=== PATIENT | male | born 1975 | race Caucasian/White ===

== ENCOUNTER 2018-05-06 18:25 | Emergency (ER) | payer OTHER, BC ==
--- NOTE | 2018-05-06 18:45 | EDM.PDOC ---
ED HPI GENERAL MEDICAL PROBLEM - General Chief Complaint: Lower Extremity Injury/Pain Stated Complaint: PT HURT RT FT Time Seen by Provider: 05/06/18 18:34 - History of Present Illness INITIAL COMMENTS - FREE TEXT/NARRATIVE: HISTORY AND PHYSICAL: History of present illness: Patient is a 43-year-old male who presents with a right foot injury that occurred approximately 2:30 PM today at work this was penetrating trauma with a metal object that went through the anterior aspect of his boot and forefoot. Eyes any other trauma or concern he denies up-to-date tetanus. Review of systems: As per history of present illness and below otherwise all systems reviewed and negative. Past medical history: As per history of present illness and as reviewed below otherwise noncontributory. Surgical history: As per history of present illness and as reviewed below otherwise noncontributory. Social history: No reported history of drug or alcohol abuse. Family history: As per history of present illness and as reviewed below otherwise noncontributory. Physical exam: HEENT: Atraumatic, normocephalic, pupils reactive, negative for conjunctival pallor or scleral icterus, mucous membranes moist, throat clear, neck supple, nontender, trachea midline. Lungs: Clear to auscultation, breath sounds equal bilaterally, chest nontender. Heart: S1S2, regular, negative for clicks, rubs, or JVD. Abdomen: Soft, nondistended, nontender. Negative for masses or hepatosplenomegaly. Negative for costovertebral tenderness. Pelvis: Stable nontender. Genitourinary: Deferred. Rectal: Deferred. Extremities: Patient has a approximately 1 cm wound to the dorsal aspect of his right forefoot was good hemostasis for some small bleeding there is no tendon involvement CMS and neurovascular exam is unremarkable Neuro: Awake, alert, oriented. Cranial nerves II through XII unremarkable. Cerebellum unremarkable. Motor and sensory unremarkable throughout. Exam nonfocal. Diagnostics: X-ray right foot Therapeutics: 0.5 Td IM Ancef 1 g IM wound was irrigated with copious amounts 0.9 dressed with bacitracin and occlusive dressing crutch training Impression: #1 acute injury right foot ( penetrating trauma) Definitive disposition and diagnosis as appropriate pending reevaluation and review of above. Review of Systems - Review of Systems Review Of Systems: ROS reveals no pertinent complaints other than HPI. ED EXAM, GENERAL - Physical Exam Exam: See Below (See dictation) Departure - Departure Time of Disposition: 18:44 Disposition: Home, Self-Care 01 Condition: Good Clinical Impression: Foot injury - Discharge Information Additional Instructions: The following information is given to patients seen in the emergency department who are being discharged to home. This information is to outline your options for follow-up care. We provide all patients seen in our emergency department with a follow-up referral. The need for follow-up, as well as the timing and circumstances, are variable depending upon the specifics of your emergency department visit. If you don't have a primary care physician on staff, we will provide you with a referral. We always advise you to contact your personal physician following an emergency department visit to inform them of the circumstance of the visit and for follow-up with them and/or the need for any referrals to a consulting specialist. The emergency department will also refer you to a specialist when appropriate. This referral assures that you have the opportunity for followup care with a specialist. All of these measure are taken in an effort to provide you with optimal care, which includes your followup. Under all circumstances we always encourage you to contact your private physician who remains a resource for coordinating your care. When calling for followup care, please make the office aware that this follow-up is from your recent emergency room visit. If for any reason you are refused follow-up, please contact the [facility] emergency department at and asked to speak to the emergency department charge nurse. [facility] - Podiatry [address] [place] [id number] Fax: [phone] Keflex as prescribed hydrocodone as prescribed crutches nonweightbearing as discussed follow-up podiatry Thursday for reevaluation wound check and dressing changes twice a day return as needed as discussed
[2018-05-06] MEDS ORDERED: Diphtheria,Pertussis(Acell),Tetanus Vaccine 0.5 ML Syringe IM ONE (18:48)
[2018-05-06] MEDS ORDERED: ceFAZolin 1 GM Vial IM ONE (18:48)
[2018-05-06] MEDS ORDERED: Water For Injection, Sterile 50 ML SDV INJECT STA (19:03)
[2018-05-06] MEDS ORDERED: Water For Injection, Sterile 20 ML ONE (19:09)
--- NOTE | 2018-05-06 19:35 | CR ---
HISTORY: Puncture wound. A hook 1 through the foot. COMPARISON: None available. FINDINGS: The right foot is examined with AP and lateral views. There is an acute, nondisplaced, comminuted fracture of the distal shaft of the 3rd metatarsal. There is moderate soft tissue swelling dorsal and ventral to the fracture. There is no sign of any radiopaque foreign body in the area of the fracture. There is no sign of additional fracture or dislocation. The soft tissues are elsewhere normal in appearance without sign of radio-opaque foreign body. There is a tiny plantar calcaneal spur. IMPRESSION: ACUTE, COMMINUTED, NONDISPLACED FRACTURE OF THE DISTAL SHAFT OF THE 3RD METATARSAL WITH NO SIGN OF ANY RADIOPAQUE FOREIGN BODY. THERE IS MODERATE SOFT TISSUE SWELLING DORSAL AND VENTRAL TO THE FRACTURE SITE. Dictated by Alfie Shin MD @ May 06 2018 7:32PM Signed by Dr. Alfie Shin @ May 06 2018 7:34PM
== END 2018-05-06 21:04 ==
LOC: MW.ED 18:25
DX: S92.334 Nondisplaced fracture of third metatarsal bone, right foot (principal); W26.8XXA Contact with other sharp object(s), not elsewhere classified, initial encounter
CPT/HCPCS: 73620; 90471; 90715; 96372; 99284; J0690